=== PATIENT | female | born 1995 | race Caucasian/White ===

== ENCOUNTER 2022-03-26 17:22 | Observation (INO) | payer MEDICAID ==
[~2022-03-26] VITALS: Ht 157.5 cm; Wt 71.2 kg
== END 2022-03-26 19:50 | disposition home or self-care (01) ==
LOC: 8 EST LDRP 17:22
PROVIDERS: ADMIT Obstetrics & Gynecology; ATTEND Obstetrics & Gynecology
DX: O36.8330 Maternal care for abnormalities of the fetal heart rate or rhythm, third trimester, not applicable or unspecified (principal); Z3A.32 32 weeks gestation of pregnancy
CPT/HCPCS: 59025; 76805; 76818; G0378

== ENCOUNTER 2022-05-20 20:00 | Inpatient (IN) | payer MEDICAID ==
[~2022-05-20] VITALS: Ht 157.5 cm; Wt 76.2 kg
[2022-05-20] MEDS ORDERED: LACTATED RINGERS 1,000 ML IV SCH ×2 (22:30→23:00)
[2022-05-20] MEDS ORDERED: OXYTOCIN 30 UNITS/500ML NS PMX 500 ML IV SCH (22:30)
[2022-05-20 22:37] LABS: CLARITY URINE TURBID (CLEAR); COLOR URINE DARK YELLOW (YELLOW); KETONES URINE TRACE (NEGATIVE); LEUKOCYTE ESTERASE URINE 1+ (NEGATIVE); NITRITE URINE NEGATIVE (NEGATIVE); OCCULT BLOOD URINE TRACE (NEGATIVE); PH URINE 5.5 (4.5-8.0); PROTEIN URINE 1+ (NEGATIVE); SPECIFIC GRAVITY URINE 1.031 (1.005-1.030)
[2022-05-20 22:44] LABS: BASOPHILS % 0.2 % (0.0-2.0); EOSINOPHILS % 0.7 % (0.0-5.0); HEMATOCRIT. 37.6 % (36.0-48.0); HEMOGLOBIN. 12.7 g/dL (12.0-16.0); LYMPHOCYTES % 20.8 % (20.0-50.0); MEAN CORPUSCULAR HEMOGLOBIN 30.1 pg (28.0-32.0); MEAN CORPUSCULAR VOLUME 89.5 fL (81.0-99.0); MEAN PLATELET VOLUME 8.4 fl (7.4-10.4); MONOCYTES % 4.9 % (2.0-8.0); NEUTROPHILS % 73.4 % (40.0-76.0); PLATELET 338 x1000/uL (130-400); RED CELL DISTRIBUTION WIDTH 13.9 % (11.6-14.6)
[2022-05-20 22:53] LABS: *AMPHETAMINES SCREEN URINE NEGATIVE (NEGATIVE); *BARBITURATES SCREEN URINE NEGATIVE (NEGATIVE); *BENZODIAZEPINES SCREEN URINE NEGATIVE (NEGATIVE); *COCAINE SCREEN URINE NEGATIVE (NEGATIVE); CANNABINOID URINE SCREEN NEGATIVE (NEGATIVE); METHADONE URINE SCREEN NEGATIVE (NEGATIVE); OPIATES URINE SCREEN NEGATIVE (NEGATIVE); PHENCYCLIDINE URINE SCREEN NEGATIVE (NEGATIVE)
[2022-05-20] MEDS ORDERED: NALOXONE HCL 0.4 MG/ML 1ML VIAL IM PRN (23:00)
[2022-05-20] MEDS ORDERED: METHYLERGONOVINE MALEATE 0.2 MG/ML IM PRN (23:00)
[2022-05-20] MEDS ORDERED: CARBOPROST TROMETHAMINE 250 MCG/ML AMPUL IM PRN (23:00)
[2022-05-20] MEDS: BUTORPHANOL TARTRATE 2 MG/ML VIAL IV PRN (23:04)
[2022-05-20 23:07] LABS: INR 0.9; PARTIAL THROMBOPLASTIN TIME 27.6 sec (23.4-31.0)
[2022-05-20 23:21] LABS: HEPATITIS B SURFACE ANTIGEN NEGATIVE
[2022-05-20] MEDS ORDERED: PREN-52 PO (23:54)
[2022-05-21] MEDS ORDERED: AMPICILLIN 2,000 MG in SODIUM CHLORIDE 0.9% 100 ML IV SCH (00:30)
[2022-05-21] MEDS ORDERED: BENZOCAINE/LANOLIN/ALOE VERA SPRAY TOP PRN (02:15)
[2022-05-21] MEDS ORDERED: DIPHENHYDRAMINE 25MG CAPSULE PO PRN (02:15)
[2022-05-21] MEDS ORDERED: HEMORRHOIDAL SUPP PR PRN (02:15)
[2022-05-21] MEDS ORDERED: IBUPROFEN 400MG TABLET PO PRN (02:15)
[2022-05-21] MEDS ORDERED: RHO(D) IMMUNE GLOBULIN 300 MCG/SYR IM PRN (02:15)
[2022-05-21] MEDS ORDERED: LANOLIN OINT 7GM TUBE TOP PRN (02:15)
[2022-05-21] MEDS ORDERED: ACETAMINOPHEN WITH CODEINE 300/30MG TABLET PO PRN (02:15)
[2022-05-21] MEDS ORDERED: BISACODYL 10MG SUPP PR PRN (02:15)
[2022-05-21] MEDS ORDERED: GLYCERIN/WITCH HAZEL LEAF MEDICATED PAD TOP PRN (02:15)
[2022-05-21] MEDS ORDERED: OXYTOCIN 30 UNITS/500ML NS PMX 500 ML IV SCH (02:15)
[2022-05-21] MEDS: BUTORPHANOL TARTRATE 2 MG/ML VIAL IV PRN (02:49)
[2022-05-21 04:30] VITALS: BP 107/61
[2022-05-21 08:00] VITALS: BP 109/72
[2022-05-21] MEDS: SIMETHICONE 80MG TABLET CHEW PO SCH ×3 (08:35→19:46)
[2022-05-21] MEDS: MAGNESIUM/ALUMINUM HYDROXIDE/SIMETHICONE 30ML UDC PO SCH ×3 (08:35→19:46)
[2022-05-21] MEDS: PRENATAL VIT/FE FUMARATE/FA TABLET PO SCH (08:35)
[2022-05-21] MEDS: IBUPROFEN 800MG TABLET PO PRN ×2 (13:36→19:46)
[2022-05-21 16:00] VITALS: BP 112/73
[2022-05-21 20:00] VITALS: BP 115/66
[2022-05-21] MEDS ORDERED: DOCUSATE SODIUM 100MG CAPSULE PO SCH (21:00)
[2022-05-21] MEDS: METHYLERGONOVINE MALEATE 0.2MG TABLET PO SCH (23:24)
[2022-05-22 04:05] VITALS: BP 115/77
[2022-05-22 06:11] LABS: BASOPHILS % 0.5 % (0.0-2.0); HEMATOCRIT. 35.9 % (36.0-48.0); HEMOGLOBIN. 12.2 g/dL (12.0-16.0); LYMPHOCYTES % 42.3 % (20.0-50.0); MEAN CORPUSCULAR HEMOGLOBIN 30.8 pg (28.0-32.0); MEAN CORPUSCULAR VOLUME 90.5 fL (81.0-99.0); MEAN PLATELET VOLUME 7.8 fl (7.4-10.4); MONOCYTES % 6.8 % (2.0-8.0); NEUTROPHILS % 48.4 % (40.0-76.0); PLATELET 330 x1000/uL (130-400); RED BLOOD CELL COUNT 3.96 mill/uL (4.2-5.4)
[2022-05-22 07:15] VITALS: BP 110/76
[2022-05-22] MEDS: MAGNESIUM/ALUMINUM HYDROXIDE/SIMETHICONE 30ML UDC PO SCH ×2 (07:30→12:24)
[2022-05-22] MEDS: SIMETHICONE 80MG TABLET CHEW PO SCH ×2 (07:42→12:24)
[2022-05-22] MEDS: PRENATAL VIT/FE FUMARATE/FA TABLET PO SCH (07:57)
[2022-05-22] MEDS: METHYLERGONOVINE MALEATE 0.2MG TABLET PO SCH (07:57)
[2022-05-22] MEDS: FERROUS SULFATE 325MG TABLET PO SCH ×2 (07:57→12:24)
[2022-05-22 15:30] VITALS: BP 116/79
== END 2022-05-22 16:20 | disposition home or self-care (01) | DRG 560 ==
LOC: 8 EST LDRP 20:00 → INTOOBSV 20:00 → OBSVTOIN 20:00 → 8EST 05-21 04:29
PROVIDERS: ADMIT Obstetrics & Gynecology; ATTEND Obstetrics & Gynecology
PROC: 10E0XZZ Delivery of Products of Conception, External Approach (ICD-10-PCS; principal; 2022-05-21)
DX: O48.0 Post-term pregnancy (principal); Z37.0 Single live birth; Z20.822 Contact with and (suspected) exposure to COVID-19; Z3A.40 40 weeks gestation of pregnancy
CPT/HCPCS: 36415; 76805; 76818; 80305; 81003; 85025; 86592; 86703; 86762; 86850; 86900; 87340; 87426; 99281; J0290; J0595; J7050; J7120; J2590